=== PATIENT | female | born 1990 | race Caucasian/White ===

== ENCOUNTER → 2017-01-31 | Outpatient (CLI) | payer OTHER ==
--- NOTE | 2017-01-31 14:40 | NM ---
HISTORY: Right upper quadrant pain, diarrhea Study: Nuclear medicine HIDA scan with ejection fraction Comparison: None Technique: Multiple scintigraphic images of the abdomen were obtained the intravenous administration of 5.4 mCi of technetium labeled Choletec. Following distention of the gallbladder with radiotracer, the patient drank 8 oz of Ensure. An estim ated gallbladder ejection fraction was calculated based on the physiologic response of this ingestion . Findings: Homogeneous uptake of radiotracer is seen throughout the liver. This intrabiliary ductal system is o bserved normally. The common hepatic and common bile duct grossly appear unremarkable with normal bi liary-bowel transit. The gallbladder is observed to fill normally. After the ingestion of Ensure, a gallbladder ejection fraction of approximately 0% (normal > 35%) is observed. IMPRESSION: 1. Normal hepatobiliary imaging scan. 2. Significantly decreased gallbladder ejection fraction, suggesting dyskinesia. Reported By:
== END ==
LOC: RAD 09:00
PROVIDERS: ATTEND Internal Medicine
DX: R10.11 Right upper quadrant pain (principal); R19.7 Diarrhea, unspecified
CPT/HCPCS: 78227